=== PATIENT | male | born 1975 | race Caucasian/White ===

== ENCOUNTER 2022-01-10 17:40 | Emergency (ER) | payer BC ==
[2022-01-10] MEDS: Iopamidol 755 Mg/ML 100 ML Bottle IVPUSH ONE (19:07)
[2022-01-10] MEDS: predniSONE 20 MG Tab PO STA (20:21)
== END 2022-01-10 20:40 | disposition home or self-care (01) ==
LOC: CC.ED 17:40
DX: G51.0 Bell's palsy (principal); Z96.21 Cochlear implant status; F17.210 Nicotine dependence, cigarettes, uncomplicated
CPT/HCPCS: 70470; 99284; 99284-25; J7512; Q9967